=== PATIENT | female | born 1975 | race Caucasian/White ===

== ENCOUNTER → 2021-02-05 | Outpatient (CLI) | payer OTHER ==
[~2021-02-05] MED LIST: ARIPIPRAZOLE5 MG PO; ATENOLOL 50MG T50 M1 PO; BACLOFEN 10MG T10 MG PO; CHILDREN'S ASPI81 M1 PO; DESYREL150 MG PO; DICYCLOMINE HCL20 MG PO; DULOXETINE HCL60 MG PO; FLUTICASONE-SA1 EAC4 INH; GABAPENTIN600 M1 PO; GLIMEPIRIDE4 MG PO; IRON325 PO; JARDIANCE25 MG PO; METFORMIN HCL1000 MG PO; NORFLEX100 MG PO; OMEPRAZOLE 20 M20 M1 PO; ONDANSETRON HCL4 M2 PO; PIOGLITAZONE30 MG PO; PREGABALIN150 MG PO; PRINIVIL40 MG PO; ROSUVASTATIN CA20 MG PO; SINGULAIR 10 MG10 M1 PO; SOLIQUA 100 UNIT3 ML SUBQ; TRAZODONE HCL50 MG PO; XIFAXAN550 M1 PO
[2021-02-05 08:53] LABS: HEMATOCRIT 42.6 % (37.0-47.0); HEMOGLOBIN 14.2 gm/dL (12.0-15.0); MCHC 33.4 g/dL (28.0-37.0); MCV 95.7 fL (80.0-100.0); RBC 4.45 mil/uL (4.20-5.00); RDW 13.2 % (10.5-14.5); WBC 9.6 thou/uL (4.0-11.0)
[2021-02-05 09:14] LABS: APTT 25.5 Seconds (24.5-32.8); CALCIUM 8.5 mg/dL (8.5-10.1); INR 0.91; POTASSIUM 4.9 mmol/L (3.5-5.1); TOTAL BILIRUBIN 0.2 mg/dL (0.2-1.0); TOTAL PROTEIN 7.3 g/dL (6.4-8.2)
[2021-02-05 09:39] LABS: URINE BILIRUBIN NEGATIVE (Negative); URINE BLOOD NEGATIVE (Negative); URINE CLARITY CLEAR; URINE COLOR YELLOW; URINE GLUCOSE-RANDOM* 3+ (Negative); URINE KETONES NEGATIVE (Negative); URINE LEUKOCYTES-REFLEX NEGATIVE (Negative); URINE NITRITE-REFLEX NEGATIVE (Negative); URINE PROTEIN (DIPSTICK) NEGATIVE (Negative); URINE SPECIFIC GRAVITY 1.015 (1.005-1.035); URINE UROBILINOGEN 0.2 E.U./dl (0.2-1.0)
--- NOTE | 2021-02-05 11:55 | EKG ---
[place] [address] 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
== END ==
LOC: PAC 07:59 → LAB 16:13
PROVIDERS: ATTEND Specialist
DX: Z01.810 Encounter for preprocedural cardiovascular examination (principal); Z01.812 Encounter for preprocedural laboratory examination; M48.02 Spinal stenosis, cervical region

== ENCOUNTER 2021-02-11 06:06 | Inpatient (IN) | payer OTHER ==
[2021-02-11] VITALS (9 sets, daily range): BP systolic 110–133; BP diastolic 75–104
[~2021-02-11] VITALS: Ht 160 cm; Wt 93.4 kg
--- NOTE | 2021-02-11 12:36 | NUR ---
ASSUMED PT CARE UPON ADMISSION TO UNIT AROUND 1140. PATIENT A&OX4, ABLE TO MAKE NEEDS KNOWN. PATIENT REPORTING PAIN THAT DECREASED WITH MEDICATION GIVEN IN PACU. PATIENT REPORTING NO NUMBNESS OR TINGLING. IV REMAINS PATENT. FALL PRECAUTIONS ARE IN PLACE, CALL LIGHT WITHIN REACH.
[2021-02-11 13:51] LABS: HEMATOCRIT 42.2 % (37.0-47.0); MCH 31.9 pg (26.0-34.0); MCHC 33.1 g/dL (28.0-37.0); MCV 96.3 fL (80.0-100.0); RBC 4.38 mil/uL (4.20-5.00); WBC 10.2 thou/uL (4.0-11.0)
[2021-02-11 13:54] LABS: CALCIUM 8.6 mg/dL (8.5-10.1); CREATININE 0.9 mg/dL (0.6-1.0); MAGNESIUM 2.4 mg/dL (1.8-2.4); POTASSIUM 4.6 mmol/L (3.5-5.1)
[2021-02-12 04:06] LABS: GLYCOHEMOGLOBIN (HGB A1C) 10.7 % (4.8-5.6)
--- NOTE | 2021-02-12 04:17 | NUR ---
ASSESSMENT COMPLETED. PT UP STEADILY TO THE BATHROOM. VOIDING OKAY. AFEBRILE.DRSG TO ANTERIOR CERVICAL NECK LOOKS OKAY.CPAP AT NOC, APPEARS TO BE RESTING WELL.ASKS FOR PRN MEDS,NO FURTHER CONCERNS.
[2021-02-12 07:24] VITALS: BP 117/82
[2021-02-12 08:12] LABS: HEMATOCRIT 40.7 % (37.0-47.0); HEMOGLOBIN 13.5 gm/dL (12.0-15.0); MCH 32.1 pg (26.0-34.0); MCHC 33.2 g/dL (28.0-37.0); MCV 96.7 fL (80.0-100.0); RBC 4.21 mil/uL (4.20-5.00); RDW 13.4 % (10.5-14.5); WBC 8.7 thou/uL (4.0-11.0)
[2021-02-12 08:30] LABS: CALCIUM 8.7 mg/dL (8.5-10.1); CREATININE 0.9 mg/dL (0.6-1.0); MAGNESIUM 2.3 mg/dL (1.8-2.4)
--- NOTE | 2021-02-12 11:23 | NUR ---
ASSUMED PT CARE THIS AM. PT IS ALERT & ORIENTED X4. REMOVED LFA IV THIS AM DUE TO INFILTRATED. PT HAS [facility] KNEE HIGH BILATERAL. PT IS UP AD EMMA TO THE BATHROOM. PT IS ACCUCHECK ACHS. PT C/O OF PAIN AND GIVEN PAIN MEDICATION PER PT REQUEST. PT USES CPAP AT NIGHT AND RA AT DAY. PT TOLERATED DIET AND MEDICATION THIS AM. PT SIGNIFICANT OTHER AT THE BEDSIDE. WILL CONTINUE TO MONITOR PT. FOLLOW POC.
--- NOTE | 2021-02-12 11:59 | NUR ---
ORDERS RECEIVED FOR PT EVAL AND TREAT. Pt S/P ANTERIOR CERVICAL DISCECTOMY AND FUSION D/T C5-6 AND C6-7 DISC HERNIATIONS. A0*4. Pt REPORTING HER N/T IN HANDS/ARMS HAS RESOLVED SINCE SURGERY. PAIN IS CONTROLLED W/ PAIN MEDS. LIVES W/ S/O, MOTHER, AND STEPFATHER IN HOME W/ STAIR LIFT. NO AD AT BASELINE. NO RECENT FALLS. Pt PERFORMED BED MOB INDEP WELL SIT>STAND. PT OBSERVED Pt WALK TO BATHROOM W/O DIFFICULTY, NO AD, STEADY ON FEET. Pt UP IN BATHROOM/ROOM W/ S/O PRESENT UPON PT DEPARTURE. Pt MAY BE UP AD EMMA. NO FURTHER ACUTE PT CONCERNS AT THIS TIME. ACUTE PT TO SIGN OFF.
[2021-02-12 12:44] VITALS: BP 117/82
--- NOTE | 2021-02-12 14:21 | NUR ---
CM REVIEWED CHART AND SPOKE WITH CARE TEAM. CM MET WITH PT AND SIG OTHER AT BEDSIDE THIS DAY. PT APPEARED TO BE A&O X4. CM ROLE INTRODUCED. PT INDICATED SHE LIVES IN A HOUSE WITH HER SIG OTHER, MOTHER, AND STEP FATHER. NO STEPS TO ENTER AND A STAIR LIFT INSIDE. 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 CARE TEAM INDICATED THAT PT IS MEDICALLY STABLE TO DC HOME THIS DAY. PT IS AWARE AND AGREEABLE. PT'S SIG OTHER TO PROVIDE TRANSPORT HOME. NO OTHER CM INTERVENTION INDICATED. CASE CLOSED.
== END 2021-02-12 13:05 | disposition home or self-care (01) | DRG 473 ==
LOC: OR → TBA 06:08 → OR 08:12 → 4S 11:43 → OR 13:02 → 4S 02-12 13:05
PROVIDERS: Internal Medicine; ADMIT Specialist; ATTEND Specialist
PROC: 5A09357 Assistance with Respiratory Ventilation, Less than 24 Consecutive Hours, Continuous Positive Airway Pressure (ICD-10-PCS; principal; 2021-02-11)
PROC: 0RB30ZZ Excision of Cervical Vertebral Disc, Open Approach (ICD-10-PCS; principal; 2021-02-11)
PROC: 0RG20K0 Fusion of 2 or more Cervical Vertebral Joints with Nonautologous Tissue Substitute, Anterior Approach, Anterior Column, Open Approach (ICD-10-PCS; principal; 2021-02-11)
DX: M50.023 Cervical disc disorder at C6-C7 level with myelopathy (principal); M50.022 Cervical disc disorder at C5-C6 level with myelopathy; M48.02 Spinal stenosis, cervical region; E11.9 Type 2 diabetes mellitus without complications; K58.9 Irritable bowel syndrome, unspecified; I10 Essential (primary) hypertension; K21.9 Gastro-esophageal reflux disease without esophagitis; E78.00 Pure hypercholesterolemia, unspecified; E66.9 Obesity, unspecified; F31.9 Bipolar disorder, unspecified; M19.90 Unspecified osteoarthritis, unspecified site; F41.9 Anxiety disorder, unspecified; G47.33 Obstructive sleep apnea (adult) (pediatric); Z90.49 Acquired absence of other specified parts of digestive tract; Z79.4 Long term (current) use of insulin; Z87.81 Personal history of (healed) traumatic fracture; Z86.14 Personal history of Methicillin resistant Staphylococcus aureus infection; Z79.82 Long term (current) use of aspirin; Z79.899 Other long term (current) drug therapy; Z83.3 Family history of diabetes mellitus; Z80.42 Family history of malignant neoplasm of prostate; Z81.8 Family history of other mental and behavioral disorders; Z87.891 Personal history of nicotine dependence; Z82.49 Family history of ischemic heart disease and other diseases of the circulatory system; Z71.3 Dietary counseling and surveillance; Z68.36 Body mass index [BMI] 36.0-36.9, adult
CPT/HCPCS: 10102; 50010; 50101; 50402; 51725; 51751; 54118; 56524; 56527; 56532; 57103; 58456; 58789; 58792; 59050; 62110; 62900; 65130; 70005

== ENCOUNTER 2021-02-19 12:41 | Inpatient (IN) | payer OTHER ==
[~2021-02-19] VITALS: Ht 160 cm; Wt 88.9 kg
--- NOTE | ~2021-02-19 | HC ---
[facility] [place] [address] [place] [address] CONSULTATION Name: ANTHONY BLACK Room #: 448-P ADM IN M.R.#: [id number] Admission: 02/19/21 Attend Phys: Rashard Alas MD Discharge: Date of : 75 Report #: [id number] THIS REPORT FOR: cc: FAM - Family physician unknown FAM - Family physician unknown Holger Romero MD ~ DATE OF SERVICE: 02/20/2021 CHIEF COMPLAINT: Surgical wound to the anterior neck. HISTORY OF PRESENT ILLNESS: This is a 45-year-old female patient with a history of irritable bowel syndrome and recent anterior cervical fusion, who was apparently noted to have some drainage from her wound. She was recommended to be admitted to the hospital. She denies any significant pain. She has already received some antibiotics overnight and states that she is feeling significantly better. PAST MEDICAL HISTORY: The patient's past medical history is positive for history of cervical spinal stenosis and she is status post anterior cervical diskectomy and fusion C5 through C7 on 02/11/2021, has a history of hypertension, diabetes, high cholesterol, gastroparesis, irritable bowel syndrome, bipolar disorder, previous cholecystectomy, and cervical disk disease. SOCIAL HISTORY: The patient is a previous smoker. No current alcohol use. FAMILY HISTORY: Noncontributory. CURRENT MEDICATIONS: Include acetaminophen, ampicillin, sulbactam, aripiprazole, aspirin, atenolol, atorvastatin, baclofen, dicyclomine, fentanyl, ferrous sulfate, glimepiride, lisinopril, lactulose, trazodone, and vancomycin. ALLERGIES: No known drug allergies. REVIEW OF SYSTEMS: CONSTITUTIONAL: The patient denies fever, chills, or weight loss. NEUROLOGICAL: The patient denies focal weakness, numbness, or tingling. EYES: The patient denies any visual changes, redness, or drainage. ENT: The patient denies earache, nasal drainage, or sore throat. CARDIOVASCULAR: The patient denies chest pain, palpitations, or diaphoresis. PULMONARY: No cough or shortness of breath. GASTROINTESTINAL: No nausea ____. ORTHOPEDIC: The patient denies pain or swelling of the extremities. Others systems in a 14-point review of systems are negative. PHYSICAL EXAMINATION: VITAL SIGNS: At this time include temperature 37.2, pulse 86, respiration 13, [facility] [address] [place] [address] CONSULTATION Name: ANTHONY BLACK Room #: 448-P [facility] IN M.R.#: [id number] Admission: 02/19/21 Attend Phys: Rashard Alas MD Discharge: Date of : 75 Report #: [id number] and blood pressure 135/97. GENERAL: This is a somewhat well-developed, well-nourished female patient, who appears to be in minimal distress. HEENT: Head normocephalic. Nose and throat clear. NECK: Demonstrates a small surgical incision to the anterior neck. There is some mild surrounding erythema. The wound itself is only slightly at a very superficial level and there is a little bit of dry eschar with no drainage and no purulence or other separation. No exposure of any deep tissues. LUNGS: Clear. HEART: Regular rhythm. ABDOMEN: Soft, nontender. NEUROLOGIC: The patient is alert, oriented, and appropriate. LABORATORY DATA: Includes sodium 138, potassium 4.1, chloride 102, CO2 of 28, BUN 14, creatinine 0.8, glucose 105. White blood cell count 7.3 with a hemoglobin of 12.2. CLINICAL IMPRESSION: 1. Surgical wound to the anterior neck following anterior cervical diskectomy and fusion approximately 1 week ago. 2. Mild wound infection that appears to be improving following intravenous antibiotics. 3. Type 2 diabetes mellitus. 4. Hypertension. 5. Bipolar depression. 6. History of prior tobacco use. 7. Endogenous obesity. RECOMMENDATIONS: At this point in time, I think that we can leave the area open to air and paint with Betadine daily and leave it dry. I am reluctant to put any dressings on that will moisten the area or cause any separation of the tissue. I think intravenous antibiotic therapy is appropriate for suppression of infection. We will continue to follow. I appreciate being asked to see her in consultation. By: [id number] Holger Romero MD /nt
[~2021-02-19 12:41] MED LIST changes: +DULOXETINE HCL30 MG PO; -DULOXETINE HCL60 MG PO
[2021-02-19 13:03] VITALS: BP 160/96
[2021-02-19 13:27] LABS: ABSOLUTE NEUTROPHILS 6.7 thou/uL (1.4-8.2); BASOPHILS 0.5 % (0.0-2.0); EOSINOPHILS 1.8 % (0.0-3.0); HEMATOCRIT 39.8 % (37.0-47.0); HEMOGLOBIN 13.5 gm/dL (12.0-15.0); LYMPHOCYTES 20.2 % (24.0-44.0); MCH 32.5 pg (26.0-34.0); MCV 95.4 fL (80.0-100.0); MONOCYTES 3.4 % (1.0-8.0); PLATELET COUNT 191 thou/uL (150-400); POLYS 74.1 % (36.0-66.0); RBC 4.17 mil/uL (4.20-5.00); RDW 13.1 % (10.5-14.5)
[2021-02-19 13:37] LABS: CALCIUM 9.3 mg/dL (8.5-10.1); CREATININE 0.9 mg/dL (0.6-1.0); POTASSIUM 4.5 mmol/L (3.5-5.1)
[2021-02-19 13:44] LABS: ALBUMIN 3.6 g/dL (3.4-5.0); TOTAL BILIRUBIN 0.2 mg/dL (0.2-1.0); TOTAL PROTEIN 8.1 g/dL (6.4-8.2)
[2021-02-19 18:40] LABS: FOLIC ACID 19.7 ng/mL (8.6-58.9)
[2021-02-20 02:06] LABS: GLYCOHEMOGLOBIN (HGB A1C) 11.1 % (4.8-5.6)
[2021-02-20 05:22] LABS: BASOPHILS 0.6 % (0.0-2.0); EOSINOPHILS 3.5 % (0.0-3.0); HEMATOCRIT 35.7 % (37.0-47.0); HEMOGLOBIN 12.2 gm/dL (12.0-15.0); LYMPHOCYTES 36.7 % (24.0-44.0); MCH 32.6 pg (26.0-34.0); MCHC 34.2 g/dL (28.0-37.0); MCV 95.5 fL (80.0-100.0); PLATELET COUNT 176 thou/uL (150-400); POLYS 54.2 % (36.0-66.0); RBC 3.73 mil/uL (4.20-5.00); RDW 13.1 % (10.5-14.5); WBC 7.3 thou/uL (4.0-11.0)
[2021-02-20 05:24] LABS: CALCIUM 8.8 mg/dL (8.5-10.1); CREATININE 0.8 mg/dL (0.6-1.0); MAGNESIUM 1.9 mg/dL (1.8-2.4); POTASSIUM 4.1 mmol/L (3.5-5.1)
[2021-02-20 08:05] VITALS: BP 117/74
[2021-02-20] MEDS ORDERED: DIFLUCAN150 M1 PO (08:54)
[2021-02-20] MEDS ORDERED: NYSTATIN100000 UNI SWISH&SPIT (08:55)
[2021-02-20] MEDS ORDERED: NORCO5 PO (08:56)
[2021-02-20 12:05] VITALS: BP 107/73
--- NOTE | 2021-02-20 12:15 | NUR ---
45 year old female admitted through the ED on 02-19-21 for complaints of neck pain after repair for cervical stenosis with anterior approach 8-days prior by neurosurgery. Patient noted seeing increase redness , swelling and green discharge at the surgical site and came to the ED. ID has been consulted. Noted from ED ID NOW as negative and reports vaccinated with Pfizer in November of 2020 The patient last had CM Contact on 02-12-21 when discharged to home with S/O, Mother and Step Father with no steps to enter into the home and independent with gait and was home with no needs. CM will reintroduce role of CM and monitor for MD recommendations with therapy evaluations for discharge planning.
[2021-02-20 16:23] VITALS: BP 135/97
[2021-02-20 17:39] VITALS: BP 135/97
[2021-02-20 19:32] VITALS: BP 123/69
[2021-02-21 03:54] VITALS: BP 113/79
--- NOTE | 2021-02-21 04:57 | NUR ---
ASSUMED PT CARE AT 1900.PT'S ADMISSION HX,EDUCATION AND ASSESSMENT COMPLETED BY RESOURCE NURSE.WOUND CARE DONE TO HER NECK.LEFT OPEN TO AIR.PT UP ALDIB IN HER ROOM.PT CONT ON IV ABX ORDERED.PT ABLE TO MAKE HER NEEDS KNOWN.CALL LIGHT WITHIN REACH.
[2021-02-21 07:35] VITALS: BP 125/93
--- NOTE | 2021-02-21 10:55 | NUR ---
Assumed care of pt at 0700. Pt a&ox4. Pain controlled. IV antibiotics infusing. Up ad yimi. Ice pack provided. Per neurosurgery group, pt is ok to discharge home. Will wait for ID input on dischareg antibiotics. Family at bedside. Call light within reach. Will continue to monitor.
[2021-02-21 11:15] VITALS: BP 112/75
[2021-02-21 15:36] VITALS: BP 106/72
--- NOTE | 2021-02-21 16:56 | NUR ---
CM MET WITH PT AT BEDSIDE THIS DAY. ID STARTED TP ON IV VANC AND UNASYN. WE ARE AWAITING CULTURES. CM EXPLAINED THIS TO PT. SHE IS AWARE. CM EXPLAINED THAT DEPENDENDING ON CULTURE RESULTS THEY MIGHT RECOMMEND CONTINUED IV ABX OR ORALS. IF IV ABX CM EXPLAINED HOME INFUSION OR OP INFUSION. PT INDICATED HER MOTHER HAS HAD SUCH SERVICES AND SHE IS A RETIRED EMT. PT WAS AGREEABLE WITH REFERRAL BEING SENT TO [facility] AND [facility] SHOULD SHE NEED THESE SERVICES UPON DC. JORY FAXED REFERRAL TO BOTH. SHOULD WE GET CULTURE RESULTS THIS WEEKEND AND PT NEED IV HOME INFUSION CALL [facility] AT AND ASK FOR BENEFIT COVERAGE FAX ORDERS TO . [facility] PHONE: FAX: .
[2021-02-21 19:32] VITALS: BP 100/62
--- NOTE | 2021-02-22 00:35 | NUR ---
UPON SHIFT REPORT, PT REPORTING SORENESS TO RIGHT SIDE OF NECK, ICE PACK REFILLED, PT REPORTS SOME RELIEF. UPON SHIFT ASSESSMENT, PT AOX4. PT REPORTS 5/10 RIGHT NECK PAIN THAT RADIATES INTO RIGHT SHOULDER. PT RECEIVING PRN PO NORCO Q4HR AND PRN PRN PO BACLOFEN WITH PRN IV FENTANYL Q4HR AND PRN PO APAP Q4HR AVAILABLE. SURGICAL WOUND TO RIGHT NECK CLEANSED WITH NS, PATTED DRY, PAINTED WITH BETADINE, AND LEFT OPEN TO AIR. PT TOLERATED WOUND CARE WITHOUT ISSUE. PT DENIES SOB WHILE ON ROOM AIR, NOTABLY HOARSE, CPAP USED AT HS. PT TOLERATING PO INTAKE OF FLUIDS AND CARB CONTROLLED DIET WITHOUT ISSUE. PT WITHOUT NAUSEA OR EMESIS. PT AMBULATING INDEPENDENTLY IN ROOM AND TO BATHROOM, RESTING IN BED OTHERWISE. FREQUENT REPOSITIONING ENCOURAGED WHILE IN BED, PT NOTED TO SHIFT INDEPENDENTLY. SENSATION INTACT, CAPILLARY REFILL LESS THAN 3SEC, PULSES TO LLE FAINT, PULSES TO RLE AND BUE PALPABLE. PT ENCOURAGED TO NOTIFY STAFF FOR ALL NEEDS, CALL LIGHT WITHIN REACH, BED LOCKED IN LOWEST POSITION, FREQUENT MONITORING WILL CONTINUE.
[2021-02-22 02:43] LABS: ABSOLUTE NEUTROPHILS 3.8 thou/uL (1.4-8.2); BASOPHILS 0.6 % (0.0-2.0); EOSINOPHILS 2.7 % (0.0-3.0); HEMATOCRIT 38.4 % (37.0-47.0); HEMOGLOBIN 12.7 gm/dL (12.0-15.0); LYMPHOCYTES 37.7 % (24.0-44.0); MCH 31.8 pg (26.0-34.0); MCHC 33.2 g/dL (28.0-37.0); MCV 95.7 fL (80.0-100.0); MONOCYTES 5.5 % (1.0-8.0); PLATELET COUNT 189 thou/uL (150-400); POLYS 53.5 % (36.0-66.0); RBC 4.01 mil/uL (4.20-5.00); WBC 7.2 thou/uL (4.0-11.0)
[2021-02-22 02:50] LABS: ALBUMIN 2.9 g/dL (3.4-5.0); CALCIUM 8.9 mg/dL (8.5-10.1); CREATININE 0.8 mg/dL (0.6-1.0); MAGNESIUM 1.7 mg/dL (1.8-2.4); PHOSPHORUS 4.2 mg/dL (2.5-4.9); POTASSIUM 3.8 mmol/L (3.5-5.1); TOTAL BILIRUBIN 0.2 mg/dL (0.2-1.0); TOTAL PROTEIN 6.6 g/dL (6.4-8.2)
[2021-02-22 05:46] VITALS: BP 105/69
[2021-02-22 09:25] VITALS: BP 106/73
--- NOTE | 2021-02-22 10:01 | NUR ---
SPOKE WITH KATYA FROM [facility] THEY DO NOT SERVICE THE [place] AREA AND ARE NOT ABLE TO ACCEPT REFERRAL.
--- NOTE | 2021-02-22 13:14 | NUR ---
FAXED REFERRAL TO [facility] SPOKE WITH ZURDO THE RULING TECHNICIAN RN AND THEY DO NOT SERVICE THE PT'S AREA NOT ENOUGH STAFF RIGHT NOW.
--- NOTE | 2021-02-22 13:17 | NUR ---
JUST SPOKE WITH DR IBARRA PT IS GOING TO BE HERE TIL WEDNESDAY FOR SURE ON IV ABX. SW TO F/U WITH PT ON WEDNESDAY.
[2021-02-22 13:18] VITALS: BP 119/86
[2021-02-22 15:42] VITALS: BP 114/74
--- NOTE | 2021-02-22 19:32 | NUR ---
PROGRESSING TOWARDS POC GOALS..
[2021-02-22 19:35] VITALS: BP 115/77
--- NOTE | 2021-02-23 03:53 | NUR ---
PT C/O PAIN TO HER NECK,MANAGED WITH MED.PT CONT ON IV ABX ORDERED.WOUND TX DONE TO HER NECK,HEALING.PT UP ADLIB IN HER ROOM.PT ABLE TO MAKE HER NEEDS KNOWN.PT LOOKING FORWARD TO BE DC'D LATER TODAY.CALL LIGHT WITHIN REACH.
[2021-02-23 07:35] VITALS: BP 104/72
--- NOTE | 2021-02-23 10:10 | NUR ---
Assumed care of pt at 0700. Pt a&ox4. Denies pain. IV antibiotics infusing. Family at bedside. Wound care done. Call light within reach. No complaints at this time. Will continue to monitor.
[2021-02-23] MEDS ORDERED: LEVOFLOXACIN500 MG PO (17:36)
[2021-02-23] MEDS ORDERED: HYDROCODON-ACE1 EAC7 PO (17:43)
[2021-02-23] MEDS ORDERED: LACTULOSE20 GM/30 M PO (17:44)
[2021-02-23] MEDS ORDERED: TRADJENTA5 MG PO (17:45)
[2021-02-23] MEDS ORDERED: ASA81BEC PO (18:05)
[2021-02-23 18:06] VITALS: BP 104/72
== END 2021-02-23 18:25 | disposition home or self-care (01) | DRG 921 ==
LOC: ER 12:41 → EROBS 17:14 → 4S 17:14 → EROBS 02-20 07:19 → 4S 02-20 18:29
PROVIDERS: Internal Medicine; Nurse Practitioner; Student in an Organized Health Care Education/Training Program; ADMIT Internal Medicine; ATTEND Internal Medicine
PROC: 5A09457 Assistance with Respiratory Ventilation, 24-96 Consecutive Hours, Continuous Positive Airway Pressure (ICD-10-PCS; principal; 2021-02-20)
DX: T81.31XA Disruption of external operation (surgical) wound, not elsewhere classified, initial encounter (principal); I10 Essential (primary) hypertension; E78.00 Pure hypercholesterolemia, unspecified; K21.9 Gastro-esophageal reflux disease without esophagitis; F32.9 Major depressive disorder, single episode, unspecified; F41.9 Anxiety disorder, unspecified; M19.90 Unspecified osteoarthritis, unspecified site; G47.33 Obstructive sleep apnea (adult) (pediatric); E11.65 Type 2 diabetes mellitus with hyperglycemia; G47.00 Insomnia, unspecified; M79.7 Fibromyalgia; M50.222 Other cervical disc displacement at C5-C6 level; M50.223 Other cervical disc displacement at C6-C7 level; E11.43 Type 2 diabetes mellitus with diabetic autonomic (poly)neuropathy; K31.84 Gastroparesis; E66.01 Morbid (severe) obesity due to excess calories; K58.9 Irritable bowel syndrome, unspecified; R13.10 Dysphagia, unspecified; B96.1 Klebsiella pneumoniae [K. pneumoniae] as the cause of diseases classified elsewhere; B95.7 Other staphylococcus as the cause of diseases classified elsewhere; Z20.822 Contact with and (suspected) exposure to COVID-19; Z79.4 Long term (current) use of insulin; Z86.14 Personal history of Methicillin resistant Staphylococcus aureus infection; Z87.81 Personal history of (healed) traumatic fracture; Z90.49 Acquired absence of other specified parts of digestive tract; Z89.012 Acquired absence of left thumb; Z87.891 Personal history of nicotine dependence; Z68.34 Body mass index [BMI] 34.0-34.9, adult; Z71.6 Tobacco abuse counseling; Z28.21 Immunization not carried out because of patient refusal
CPT/HCPCS: 10100